=== PATIENT | male | born 1955 | race Hispanic/Latino ===

== ENCOUNTER 2016-09-21 09:26 | Outpatient (CLI) | payer OTHER ==
[2016-09-21] MEDS ORDERED: NACL ONE ×2 (09:51→10:40)
[2016-09-21 10:15] LABS: Blood Urea Nitrogen 17 mg/dL (9-20)
--- NOTE | 2016-09-21 12:57 | Cat Scan Report ---
CT ANGIOGRAM ABDOMEN AND PELVIS History: Abdominal aortic aneurysm. Technique: Helical CT following IV contrast. Sagittal and coronal reformatted images. Rotational MIP images. Findings: No comparison at this facility. Contrast bolus is satisfactory. An aortobiiliac stent graft is identified which is widely patent. Infrarenal fusiform AAA measures a maximum diameter 4.2 cm. There is no evidence for endoleak. The celiac axis, SMA, single right renal artery, and dual left renal arteries are widely patent with less than 20% stenosis. The origin of the URBANO is occluded. Distal segments of the URBANO are reconstituted by collateral flow. The CT appearance of the liver, biliary system, pancreas, spleen and adrenal glands are within normal limits. Few scattered renal calyceal stones are suspected. No ureteral stones or hydronephrosis. The kidneys are within normal limits otherwise. The bladder and prostate gland are unremarkable. Bowel loops are normal caliber. Normal appendix. Impression: Infrarenal AAA containing a stent graft measures a maximum diameter 4.2 cm. No evidence for endoleak.
== END 2016-09-21 09:27 | disposition home or self-care (01) ==
LOC: CT 09:26
PROVIDERS: ATTEND Surgery Vascular Surgery
DX: I71.4 Abdominal aortic aneurysm, without rupture (principal)
CPT/HCPCS: 36415; 74174; 82565; 84520; Q9967